=== PATIENT | female | born 1970 | race Caucasian/White ===

== ENCOUNTER 2022-11-24 06:01 | Day surgery (SDC) | payer OTHER, SELFPAY ==
[2022-11-05 12:06] VITALS: BMI 19.5
--- NOTE | 2022-11-21 14:00 | PM.HPGS ---
History of Present Illness History of Present Illness Consent: Risks, benefits, and alternatives have been discussed and questions answered. Patient agrees to proceed with procedure. Chief complaint: History of Colon Polyps Narrative: Cyndi Franks is a 52 year old female with history of colon polyps referred for colon cancer screening. Review of Systems Review of Systems: All systems reviewed & are unremarkable except as noted in HPI and below PMFSH Past Medical History Medical History History of vaginal delivery x 1 Hypothyroidism Rupture of plantar fascia of left foot Surgical History Surgical History History of ankle surgery tarsal tunnel, Dr. Higinio Natarajan History of ear surgery History of right oophorectomy Hx of LASIK [place] teeth removed Family History Family History Grandparent Diabetes mellitus Hypertension Other Neuropathy Social History Social History Smoking status: Never smoker Alcohol intake: never Substance use: never Substance use type: does not use Lack of Transportation: No Lack of Food: Never True Current Housing: I Have Housing Concerned About Future Housing: No Difficulty Paying Gas/Electric Bills: No Difficulty Paying for Meds: No Currently Unemployed: No Education: Master's Degree or Higher Difficulty w/ Childcare or Family Care: No Living arrangements: with family Spiritual care concerns: No Meds Home Medications and Allergies Home Medications Medication Instructions Recorded Confirmed Type multivitamin 1 cap PO DAILY 11/01/19 11/24/22 History spironolactone 100 mg PO DAILY 11/01/19 11/24/22 History valacyclovir 1 gram tablet 1,000 mg PO Q12H PRN Fever 10/16/20 11/24/22 Rx blisters #90 tabs levothyroxine 125 mcg capsule 125 mcg PO DAILY 12/03/20 11/24/22 History atorvastatin 10 mg tablet 10 mg PO DAILY 04/14/22 11/24/22 History Allergies Allergy/AdvReac Type Severity Reaction Status Date / Time Sulfa (Sulfonamide Allergy Unknown Unknown Verified 11/24/22 07:15 Antibiotics) Exam Const: General: alert Orientation/consciousness: patient oriented x3 Resp: Auscultation: clear to auscultation bilaterally Cardio: Rhythm: regular rhythm GI: GI Palp: Yes Soft to palpation and No Tenderness to palpation present (GI) Neuro: General: patient oriented x3 Assessment and Plan Assessment and plan (1) Colon cancer screening: Code(s): Z12.11 - Encounter for screening for malignant neoplasm of colon Status: Acute Assessment and Plan: Colonoscopy with possible biopsy or polypectomy or cautery or injection of substances.
[2022-11-24 07:33] VITALS: BP 104/47; PULSE 109; RESP 16; TEMP 37.2; O2SAT 100
[2022-11-24] MEDS: LACTATED RINGERS 1,000 ML 150 ML IV CONT (07:34)
--- NOTE | 2022-11-24 07:53 | P.PNAN_ITS ---
Anes - Initial Pre Proc Eval Procedure: Operation Date: 11/24/22 08:30 Proposed Procedures p Colonoscopy - Norm Fofana MD Date/Time: 11/24/22 07:53 Surgeon: Norm Fofana MD Pre Op Diagnosis: History of Colon Polyps Patient Data Age: 52 Gender: F Height: 1.68 m Weight: 51.9 kg Last Vital Signs Temp 37.2 C 11/24/22 07:33 Pulse 109 H 11/24/22 07:33 Resp 16 11/24/22 07:33 BP 104/47 L 11/24/22 07:33 Pulse Ox 100 11/24/22 07:33 O2 Del Method Room Air 11/24/22 07:33 Allergies Allergy/AdvReac Type Severity Reaction Status Date / Time Sulfa (Sulfonamide Allergy Unknown Unknown Verified 11/24/22 07:15 Antibiotics) Home Medications Medication Instructions Recorded Confirmed Type multivitamin 1 cap PO DAILY 11/01/19 11/24/22 History spironolactone 100 mg PO DAILY 11/01/19 11/24/22 History valacyclovir 1 gram tablet 1,000 mg PO Q12H PRN Fever 10/16/20 11/24/22 Rx blisters #90 tabs levothyroxine 125 mcg capsule 125 mcg PO DAILY 12/03/20 11/24/22 History atorvastatin 10 mg tablet 10 mg PO DAILY 04/14/22 11/24/22 History Patient hx anesthesia problems: none Family hx anesthesia problems: none Results Review: All pre-operative results and documents have been reviewed as part of the pre- operative evaluation. [facility] Past Medical History Medical History History of vaginal delivery x 1 Hypothyroidism Rupture of plantar fascia of left foot Surgical History Surgical History History of ankle surgery tarsal tunnel, Dr. Higinio Natarajan History of ear surgery History of right oophorectomy Hx of LASIK [place] teeth removed Family History Family History Grandparent Diabetes mellitus Hypertension Other Neuropathy Social History Social History Smoking status: Never smoker Alcohol intake: never Substance use: never Substance use type: does not use Lack of Transportation: No Lack of Food: Never True Current Housing: I Have Housing Concerned About Future Housing: No Difficulty Paying Gas/Electric Bills: No Difficulty Paying for Meds: No Currently Unemployed: No Education: Master's Degree or Higher Difficulty w/ Childcare or Family Care: No Living arrangements: with family Spiritual care concerns: No Anes - Eval Final PreProcedure Day of Procedure 11/24/22 07:53 Patient weight: normal Heart: regular rate and rhythm Lungs: clear to auscultation Airway: Mallampati scale class II Neurological: alert and oriented Last oral intake: >/= 8 hours ASA classification: II Emergent: no Anesthetic plan: proceed Anesthesia type and monitoring: general GIVS and standard monitoring Results Review: All pre-operative results and documents have been reviewed as part of the pre- operative evaluation. Informed Consent: The patient's anesthetic plan and its attendant risks and benefits were discussed with the patient/family/POA. Questions were solicited and answers provided to the satisfaction of
[2022-11-24 08:48] VITALS: BP 93/45; PULSE 84; RESP 18; O2SAT 100
[2022-11-24 08:58] VITALS: BP 94/59; PULSE 67; RESP 18; O2SAT 100
--- NOTE | 2022-11-24 08:58 | WPDANESPN ---
Anes - Prog Note Post-Op Date/Time: 11/24/22 08:58 Cardiovascular status: normal Respiratory status: normal Airway patency: baseline Mental status: baseline Post-Op hydration status: normal Vital Signs: Last Vital Signs Temp 37.2 C 11/24/22 07:33 Pulse 84 11/24/22 08:48 Resp 18 11/24/22 08:48 BP 93/45 L 11/24/22 08:48 Pulse Ox 100 11/24/22 08:48 O2 Del Method Room Air 11/24/22 08:48 Pain Score (VAS): 0 I/O: Intake & Output 11/23/22 11/24/22 11/24/22 23:59 07:59 15:59 Intake Total 600 Balance 600 Patient Feedback: Patient satisfied with anesthetic care.
[2022-11-24 09:08] VITALS: BP 91/57; PULSE 72; RESP 20; O2SAT 100
== END 2022-11-24 09:17 | disposition home or self-care (01) ==
PROVIDERS: PCP Internal Medicine; Visit Provider Internal Medicine Gastroenterology
PROC: 0DJD8ZZ Inspection of Lower Intestinal Tract, Via Natural or Artificial Opening Endoscopic (ICD-10-PCS; CPT 45378; principal; 2022-11-24 08:30)
DX: Z12.11 Encounter for screening for malignant neoplasm of colon (principal); Z86.010 Personal history of colon polyps
CPT/HCPCS: 45378

== ENCOUNTER 2024-03-23 12:26 | Outpatient (CLI) | payer OTHER, SELFPAY ==
--- NOTE | ~2024-03-23 | MMUS_ITS ---
EXAMINATION: MM diagnostic syeda RT w annmarie, US breast RT complete HISTORY: Right breast masses. TECHNIQUE: Additional 3-D tomosynthesis images of the right breast were performed and synthetic 2-D i mages were generated. CAD analysis was submitted and interpreted. High resolution complete right [address]il[address] st ultrasound was performed. COMPARISON: Comparison to multiple prior studies sequentially, with oldest reviewed study dated 11/03. BREAST PARENCHYMAL COMPOSITION: Dense: The breasts are heterogeneously dense, which may obscure small masses FINDINGS: MAMMOGRAPHIC FINDINGS: There are masses in the upper outer quadrant of the right breast some of which are partially obscured by fibroglandular tissue. There are no suspicious calcifications or architectural distortion. ULTRASOUND: Complete US of all 4 quadrants of the right breast/s and retroareolar region was reviewed. At 12:00, 2 cm from the nipple there is a 3 mm cyst. At 9:00, 3 cm from the nipple there is a 7 mm cyst. At 10: 00, 7 cm from the nipple there is a 5 mm minimally complicated cysts. At 10:00, 7 cm from the nipple there is a 5 mm intramammary lymph node. No suspicious masses to suggest malignancy. IMPRESSION: 1. No evidence for malignancy in the right breast. Benign findings. 2. Routine yearly screening mammogram and regular clinical breast examination are recommended. BI-RADS Category 2: Benign finding(s). Reviewed, dictated and finalized at location B. [place] [employer] IMPRESSION: 1. No evidence for malignancy in the right breast. Benign findings. 2. Routine yearly screening mammogram and regular clinical breast examination a re recommended. BI-RADS Category 2: Benign finding(s).
--- OUTSIDE RECORDS SUMMARY | 2024-03-23 12:32 | XMS_ITS | Clinical Summary ---
Author Organization [facility] [place] [address] Address [address] [place] [id number] Care Team Providers Care Solidworks Drafter Name Role Phone Maria Del Carmen Rothman Primary Care Pr ovider Allergies Active Allergy Reactions Criticality Noted Date Comments Sulfa (Sulfonamide Antibiotics) Rash Medium 11/11 Medications atorvastatin (LIPITOR) 10 mg tablet 3 Active cholecalciferol (VITAMIN D-3) 78145 unit tablet Active ciprofloxacin-f luocinolone (Otovel) otic solution Administer into affected ear(s) 7 Active Synthroid 125 mcg tablet 3 Active spironolactone (ALDACTONE) 100 mg tablet 4 Active multivitamin tablet Active Active Problems No known active problems Surgical History Surgery Date Site/Laterality Comments AR UNLISTED PROCEDURE ABDOME N PERITONEUM & OMENTUM Hernia Repair - (Added by TW Conv) Medical History Medical History Date Comments Endometriosis Endometriosis - (Added by TW Conv) Social History Tobacco Use Types Packs/Day Years Used Date Smoking Tobacco: Never Comments Unknown Sex and Gender Information Value Date Recorded Sex Assigned at Not on file Legal Sex Female 12:07 PM [employer] Gender Identity Not on file Sexual Orientation Not on file Obstetrics History Last Filed Vital Signs Vital Sign Reading Time Taken Comments Blood Pressure 121/70 07/14/2023 9:49 AM CDT Pulse 73 07/14/2023 9:49 AM CDT Temperature 36.8 C (98.3 F) 07/14/2023 9:49 AM CDT Respiratory Rate 16 07/14/2023 9:49 AM CDT Oxygen Saturation 99% 07/14/2023 9:49 AM CDT Inhaled Oxygen Concentration - - Weight 57.2 kg (126 lb) 07/14/2023 9:49 AM CDT Height 167.6 cm (5' 6 ) 07/14/2023 9:49 AM CDT Body Mass Index 20.34 07/14/2023 9:49 AM CDT Plan of Treatment Health Maintenance Due Date Last Done Comments Breast Cancer Screening-Mammogram 1969 Cervical Cancer Screening 1969 Colon Cancer Screening-Colonoscopy 1969 Depression Screening 1969 Hepatitis C Screening 1969 DTaP/Tdap/Td Vaccine (1 - Tdap) 1980 Hepatitis B Screening 09/08/1987 Regular Well Visit/Exam 18-64 09/08/1987 Zoster Vaccine (1 of 2) 09/08/2019 Covid-19 Vaccine ( season) 2023 12/04/2022, 12/19/2021, 09/04/2021, Additional history exists Influenza Vaccine (#1) 2023 , 11/29/2021, 11/19/2020, Additional history exists Pneumococcal vaccine <65 Aged Out No longer eligible based on patient's age to complete [place] [id number] [facility] PL[facility] Care Teams Solidworks Drafter Relationship Specialty Start Date End Date Maria Del Carmen Rothman PA [address] [place] [address] PCP - General Physician Fingerprint Expert 07/14/23
--- OUTSIDE RECORDS SUMMARY | 2024-03-23 12:32 | XMS_ITS | Data Portability ---
Author Organization [facility] [address] [place] [address] Care Team Providers Care Delinquent Notice Machine Operator Name Role Phone SUSY CARTER Primary Care Provider Unavailab le Assessment Encounter Date Assessment Date Assessment LastModified by Organization Details LastModified Time 04/20/2023 04/20/2023 Mammogram UTD february 2023, colonoscopy UTD [address] Fofana, all clear. pap smear utd with dr. gr, next due may 2023 eye exam last week dental visit UTD [email or web address] Not available 04/20/2023 08:56:06 Plan of Treatment Reminders Order Date Submit Date Provider Last Modified By Organization Details Last Modified Time Details Appointments ANNUAL 30 2024 07:30A M SIM Pepe Not available Not available Not available Lab vitamin D, 25-hydrox y, total, serum 2023 [facility] (Lab), [address] [place], [address], 04/27/2023 17:51:30 CBC w/ auto diff 2023 024 [facility] (Lab), [address] [place], [address], 04/27/2023 17:51:29 CMP, serum or plasma 2023 024 [facility] (Lab), [address] [place], [address], 04/27/2023 17:51:29 vitamin B12 + folate, serum or blood 2023 024 [facility] (Lab), [address] [place], [address], 04/27/2023 17:51:30 glycohemo globin, total, blood 2023 024 [facility] (Lab), [address] [place], [address], 04/27/2023 17:51:29 TSH, serum or plasma 2023 024 [facility] (Lab), [address] [place], [address], 04/27/2023 17:51:29 T4, free, serum 2023 024 [facility] (Lab), [address] [place], [address], 04/27/2023 17:51:29 T3, free, serum or plasma 2023 024 [facility] (Lab), [address] [place], [address], 04/27/2023 17:51:29 lipid panel, serum 2023 024 [facility] (Lab), [address] [place], [address], 04/27/2023 17:51:28 Referral None recorded. Procedures None recorded. Surgeries None recorded. Imaging None recorded. Medication Orders triamcino lone acetonide 0.5 % topical cream 2023 [facility]arm[facility] #[id number], [address] , [place], [address], 01/13/2024 09:45:16 Patient TargetsNo targets recorded. Patient InstructionsNo instructions recorded. Reason for Referral None Reported. Results Created Date Observation Date Name Description Value Unit Range Abnormal Flag Note LastModifiedBy Organization Detail LastModifiedTime 03/05/1903/05/2024 MAMMO , scree gloria, digit al, bilat eral No observ ation record ed. [address], [place], [address], 03/11/2024 10:49:54 03/18/1903/05/2024 MAMMO , flaviae gloria, digit al, bilat eral No observ ation record ed. [address], [place], [address], 03/22/2024 09:24:18 Result Notes None recorded. Problems Name Problem SNOMED Code Status Onset Date Resolution Date Notes Provider Name and Address Organization Details Recorded Time [facility] 80181567 Active 2023 [place] 4 08:32:22 Hypothyroidism 40304793 Active 2023 [place]odi [place] [facility] 09:17:05 Problem Notes None recorded. Procedures Surgical History Date Name Laterality Status Provider Name and Address Organization Details Recorded Time 11/25/19 colonoscopy completed Jodi [place] - [facility] 04/20/2023 12:41:41 laser assisted in situ keratomileusis completed [place]odi [place] 04/20/2023 12:36:12 operation on female genital organs completed [place] [facility] 04/20/2023 12:37:07 tarsal tunnel release completed [place] [facility] 04/20/2023 12:38:53 Other completed [place] [facility] 04/20/2023 12:39:15 Imaging Results Imaging Date Name Status [facility]Modified by [facility] Details LastModified Time 03/05/2024 MAMMO, screening, digital, bilateral completed [address], [place], [address], 03/11/2024 10:49:54 03/05/2024 MAMMO, screening, digital, bilateral completed [address], [place], [address], 03/22/2024 09:24:18 Procedure Notes None recorded. Medical Equipment None Reported. Allergies Allergen ID Allergen Name Allergen Category Reaction Reaction Severity Criticality Documentation Date Start Date Code Code System Note Provider Name and Address Organization Details Recorded Time 455460 Substance with sulfonami de structure and antibacte rial mechanism of action (substanc e) medicatio n rash Not available Not available 04/20/2023 57417 8003 SNOMED Not Available Not Available Not Available Medications Name Sig Start Date Stop Date Status Note LastModified by Organization Details LastModified Time amoxicillin 500 mg capsule TAKE 2 CAPSULES BY MOUTH ONCE DAILY X10 DAYS 04/19 completed Not Available Not Available Not Available triamcinolo ne acetonide 0.5 % topical cream APPLY A THIN LAYER TO THE AFFECTED AREA(S) BY TOPICAL ROUTE 2 TIMES PER DAY PRN 2023 active Not Available Not Available Not Avai lable atorvastati n 10 mg tablet Take 1 tablet every day by oral route. active Not Available Not Available No t Available valacyclovi r 1 gram tablet active Not Available Not Available Not Available Synthroid 125 mcg tablet TAKE 1 BY MOUTH EVERY DAY active Not Available Not Available No t Available spironolact one 100 mg tablet Take 1 tablet every day by oral route for 90 days. active Not Available Not Available No t Available amoxicillin 875 mg tablet TAKE 1 TABLET BY MOUTH TWICE A DAY FOR 10 DAYS 01/12 completed Not Available Not Available Not Available nystatin 100,000 unit/gram topical cream APPLY TO THE AFFECTED AREA(S) of feet BY TOPICAL ROUTE 2 TIMES PER DAY 2023 active Not Available Not Available Not Avai lable amoxicillin 875 mg-potassiu m clavulanate 125 mg tablet TAKE 1 TABLET BY MOUTH EVERY DAY IN THE MORNING AND AT BEDTIME FOR 7 DAYS 04/19 completed Not Available Not Available Not Available estradiol 10 mcg vaginal tablet Insert 1 tablet every day by vaginal route for 84 days. active Not Available Not Available No t Available Xiidra 5 % eye drops in a dropperette twice daily active Not Available Not Available No t Available Flowflex COVID-19 Antigen Home Test kit 04/19 completed Not Available Not Available Not Available Vitals Date Recorded Body weight Respiratory rate Heart rate Body mass index (BMI) Body height Systolic blood pressure Diastolic blood pressure Provider Name and Address Organization Details Last Updated DateTime 4 93283.0 5 g 16 /min 83 /min 19.9 kg/m2 168.91 cm 100 mm[Hg] 67 mm[Hg] Jodi Lynch [facility] 4 08:35:26 Date Recorded Systolic blood pressure Diastolic blood pressure Systolic blood pressure Diastolic blood pressure Provider Name and Address Organization Details Last Updated DateTime 04/20/2023 120 mm[Hg] 78 mm[Hg] 118 mm[Hg] 80 mm[Hg] SIM Pepe Attn: Accounting ,[address] [facility], [place], [address] , [facility] 4 08:57:03 Date Recorded Body height Body mass index (BMI) Body weight Respiratory rate Oxygen saturation Oxygen saturation in Arterial blood by Pulse oximetry Heart rate Systolic blood pressure Diastolic blood pressure Provider Name and Address Organization Details Last Updated DateTime 4 168.91 cm 19.1 kg/m2 66582.0 8 g 18 /min 99 % 99 % 73 /min 116 mm[Hg] 82 mm[Hg] Robert Mcgraw MA [facility] 4 09:31:45 Social History Question Answer Notes LastModified by Organizat ion Details LastModified Time Tobacco Smoking Status Never Smoker Jodi Lynch [facility], [facility] 04/20/2023 08:36:55 Do You Have An Advance Directive? Yes [email or web address] Information not available 04/20/2023 What Is Your Level Of Alcohol Consumption? Occasional [email or web address] Information not available 04/20/2023 Are You Blind Or Do You Have Difficulty Seeing? Yes Glasses At Night [email or web address] Information not available 04/20/2023 What Is Your Level Of Caffeine Consumption? Moderate [email or web address] Information not available 04/20/2023 In The 14 Days Before Symptom Onset, Have You Had Close Contact With A Laboratory-confir med COVID-19 While That Case Was Ill? No [email or web address] Information not available 04/20/2023 In The 14 Days Before Symptom Onset, Have You Had Close Contact With A Person Who Is Under Investigation For COVID-19 While That Person Was Ill? No [email or web address] Information not available 04/20/2023 Have You Been To An Area Known To Be High Risk For COVID-19? No [email or web address] Information not available 04/20/2023 Are You Currently Employed? Yes Information not available 01/13/2024 Are You Deaf Or Do You Have Serious Difficulty Hearing? No Information not available 04/20/2023 What Type Of Diet Are You Following? 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 No [email or web address] Information not available 04/20/2023 What Was The Date Of Your Most Recent Tobacco Screening? 01/13/2024 Information not available 01/13/2024 What Is Your Relationship Status? [email or web address] Information not available 04/20/2023 Do You Use Your Seat Belt Or Car Seat Routinely? Yes [email or web address] Information not available 04/20/2023 Do You Have Smoke And Carbon Monoxide Detectors In Your Home? Yes Information not available 04/20/2023 Do You Use Any Illicit Or Recreational Drugs? No Information not available 04/20/2023 Do You Use Sunscreen Routinely? Yes Information not available 04/20/2023 Has Tobacco Cessation Counseling Been Provided? No Information not available 01/13/2024 Do You Or Have You Ever Used Any Other Forms Of Tobacco Or Nicotine? No [email or web address] Information not available 04/20/2023 Sex: Unknown Functional Status Question Answer Note LastModified by Organization D etails LastModified Time Are you able to care for yourself? Yes [email or web address] Information n ot available 04/20/2023 What is your exercise level? Heavy [email or web address] Information not available 04/20/2023 Mental Status None recorded. Family History Relationship Description Onset Age of this Age Resolved Age Notes LastModified by Organization Details LastModified Time Mother Diabetes mellitus [email or web address] Not available 04/19 08:36:37 Mother Depressive disorder [email or web address] Not available 04/19 12:41:02 Mother Hyperlipidem ia [email or web address] Not available 04/19 12:41:09 Mother History of thyroid disorder [email or web address] Not available 04/19 12:41:18 Medical History Condition Response Acid Reflux (GERD) Y Thyroid Problems Y Kidney or Bladder Problems Y High Cholesterol Y Gynecological History Statement/Question Response Menses Monthly N Obstetrics History GPAL:G 0 P 0 0 0 0 Immunizations Vaccine Type Date Status Note Provider Nam e and Address Organization Details Recorded Time Influenza, split virus, quadrivalent, preservative 9 completed EDGARD Brown, [place] - [facility] 01/13/2024 09:29:41 Influenza, MDCK, quadrivalent, PF 8 completed [place] [facility] 01/13/2024 09:29:41 Influenza, MDCK, quadrivalent, PF 3 completed [place] [facility] 01/13/2024 09:29:41 COVID-19, mRNA, LNP-S, PF, 100 mcg/0.5mL dose or 50 mcg/0.25mL dose 1 completed [place] [facility] 01/13/2024 09:29:41 COVID-19, mRNA, LNP-S, PF, 100 mcg/0.5mL dose or 50 mcg/0.25mL dose 1 [place] [facility] 01/13/2024 09:29:41 COVID-19, mRNA, LNP-S, PF, 100 mcg/0.5mL dose or 50 mcg/0.25mL dose 1 [place]ARD [place] [facility] 01/13/2024 09:29:41 COVID-19, mRNA, LNP-S, PF, 30 mcg/0.3 mL dose, edgar-sucrose 2 completed ED[place]ARD [place] [facility] 01/13/2024 09:29:41 COVID-19, mRNA, LNP-S, bivalent, PF, 30 mcg/0.3 mL dose 2 completed EDGARD Brown, [place] - [facility] 01/13/2024 09:29:41 COVID-19, mRNA, LNP-S, PF, 50 mcg/0.5 mL 3 completed [place] [facility] 01/13/2024 09:29:41 Influenza, split virus, trivalent, preservative 1 completed [place] [facility] 01/13/2024 09:29:41 Influenza, split virus, trivalent, preservative 4 completed EDGARD Brown, [place] - [facility] 01/13/2024 09:29:41 Influenza, split virus, trivalent, PF 6 completed EDGARD Brown, [place] - [facility] 01/13/2024 09:29:41 Influenza, split virus, quadrivalent, PF 2 completed ED[place]ARD [place] [facility] 01/13/2024 09:29:41 Past Encounters Encounter ID Performer Location Encounter Start Date Encounter Closed Date Diagnosis/Indication Diagnosis SNOMED-CT Code Diagnosis ICD10 Code Diagnosis Note [id number] SIM Pepe [facility] [address] [place] [address] 04/20/2023 08:22:10 04/20/2023 09:04:43 Adult health examination 641433028 Z00.01 new pt well exam completed. Hyperlipidemia 16033967 E78.5 on atorvastat in 10mg daily. due for fasting labs this summer. Hypothyroidism 26969889 E03.9 on thyroid supplement synthroid 125mcg daily. due for TFT panel this summer. Long-term drug therapy 911759482 Z79.899 all fasting routinely labs ordered for summer evaluation . Diabetes m ellitus screening 770985872 Z13.1 Endocrine/ metabolic screening 775785931 Z13.318 [id number] SIM Pepe [facility] [place] [address] [place] [address] 01/13/2024 09:20:58 01/13/2024 10:18:57 Contact dermatitis 56912672 L25.9 located on right dorsal foot and slight left dorsal foot. Start triamcinol one 0.5% cream twice daily for 7-10 days. There is absolutely no known trigger after interviewi ng trying to find a potential cause. Health Concerns Section Related Observation LastModified by Organization Detai ls LastModified Time None Recorded Concern Status LastModified by Organization Details LastModified Time None Recorded Advance Directives Directive Y: Payers Encounter Date Sequence Insurance Name Policy Number Policy Toribio Covered Member ID Toribio Member ID Guarantor Name 04/20/2023 1 [facility] [id number] Cyndi Franks [id number] Cyndi Franks 01/13/2024 1 [facility] [id number] Cyndi Franks [id number] Cyndi Franks Notes Date Note Type Note Provider Name and Address Organization Details Recorded Time 4 text/html HyperlipidemiaReported bypatient.Duration:chronic Control:usually well controlled Compliance:compliant; compliant with diet; exercises Complications:no coronary artery disease; no peripheral artery disease; no cardiovascular diseaseNotes:stable on low dose statin therapy.ThyroidReported bypatient.Quality:not changing Duration:constant Onset/Timing:still present Context:history of hypothyroidism Modifying Factors:medication Exercisegets exercise Associated Symptoms:no cold intolerance; no heat intolerance; no weight loss; no weight gain; no double vision; no dry eyes; no hoarseness; no difficulty swallowing; no neck masses; no deepening of the voice; no fast heart rate; no increased blood pressure; no palpitations; no chest pain; no chest tightess or pressure; no constipation; no diarrhea; no vomiting; no decreased appetite; no loose stools; no irregular menstrual periods; no excessive sweating; no joint pain; no numbness; no tingling of the hands or feet; no dry skin; no tremor; no nervousness; no anxiety; no depression; no fatigue; no sleep difficulties; no skin changes; no hair changesNotes:stable on thyroid supplement. SIM Pepe Attn: Accounting,[address] [place], [address], [place] [facility] 04/20/2023 09:13:09 4 text/html Skin LesionReported bypatient.Location:foot (Dorsal foot bilaterally right greater than left with a red and itchy rash times 5 days) Quality:itchy Severity:mild Duration:5 days Timing:abrupt Context:no known trigger Alleviating Factors:none Aggravating Factors:none Associated Symptoms:no fever; no cold symptoms; no nausea; no vomiting; no skin flakes; no scabbing; no bruising; no lesions multiplying; no lesions spreading; no chills; no night sweats; no lymphadenopathy Prior Treatments:OTC topical treatment SIM Pepe Attn: Accounting,[address] [place] [address], [id number], [place] - [facility] 01/13/2024 10:00:20 OBGyn Episode No OBEpisode recorded.
--- OUTSIDE RECORDS SUMMARY | 2024-03-23 12:33 | XMS_ITS | Referral Summary ---
Author Organization [facility] [address] Address [address] [place] [address] Care Team Providers Care Bump Grader Operator Name Role Phone Maria Del Carmen Rothman Primary Care Pr ovider Allergies Active Allergy Reactions Criticality Noted Date Comments Sulfa (Sulfonamide Antibiotics) Rash Medium 11/11 Medications atorvastatin (LIPITOR) 10 mg tablet 3 Active cholecalciferol (VITAMIN D-3) 45588 unit tablet Active ciprofloxacin-f luocinolone (Otovel) otic solution Administer into affected ear(s) 7 Active Synthroid 125 mcg tablet 3 Active spironolactone (ALDACTONE) 100 mg tablet 4 Active multivitamin tablet Active Active Problems No known active problems Social History Tobacco Use Types Packs/Day Years Used Date Smoking Tobacco: Never Comments Unknown Sex and Gender Information Value Date Recorded Sex Assigned at Not on file Legal 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
--- OUTSIDE RECORDS SUMMARY | 2024-03-23 12:33 | XMS_ITS | Data Portability ---
Author Organization [facility] [employer] Main Office Address [address] [place] [address] Assessment Encounter Date Assessment Date Assessment LastModified by Organization Details LastModified Time 08/13/2022 08/13/2022 Blood work C scope Gets mammograms through device sales consultant Healthy lifestyle choices discussed seatbelts sunscreen regular exercise healthy diet follow-up 1 year [email or web address] Not available 08/13/2022 10:30:42 Plan of Treatment Reminders Order Date Submit Date Provider Last Modified By Organization Details Last Modified Time Details Appointments None recorded. Lab T4, free, serum 023 023 [facility] (Lab), [address] [place], [address], 3 12:58:20 TSH, serum or plasma 023 023 [facility] (Lab), [address] [place], [address], 3 13:02:15 T3, free, serum or plasma 023 023 [facility] (Lab), [address] [place], [address], 3 12:58:25 lipid panel, serum 023 023 [facility] (Lab), [address] [place], [address], 3 12:46:18 CMP, serum or plasma 023 023 [facility] (Lab), [address] [place], [address], 3 12:46:23 CBC w/ auto diff 023 023 [facility] (Lab), [address] [place], [address], 3 12:23:22 vitamin D, 25-hydrox y, total, serum 023 023 cyl [facility] (Lab), [address] [place], [address], 4 10:47:07 Referral None recorded. Procedures None recorded. Surgeries None recorded. Imaging None recorded. Medication Orders None recorded. Patient TargetsNo targets recorded. Patient InstructionsNo instructions recorded. Reason for Referral None Reported. Results Created Date Observation Date Name Description Value Unit Range Abnormal Flag Note LastModifiedBy Organization Detail LastModifiedTime 08/16/19 21 08/15/2020 T3 FREE free T3 3.9 pg/mL 2.77-5 .27 Not Available [facility] (Lab) [address] [place], [address], 08/15/2020 20:27:22 08/16/19 21 08/15/2020 CBC/C OMPLE TE BLD COUNT W/DIF F hemoglobin 14.0 g/dL 12.0-1 5.6 Not Available [facility] (Lab) [address] [place], [address], 08/15/2020 11:38:42 08/16/19 21 08/15/2020 CBC/C OMPLE TE BLD COUNT W/DIF F white blood cells 4.2 x10'3 /uL 4.2-10 .8 Not Available [facility] (Lab) [address] [place], [address], 08/15/2020 11:38:42 08/16/19 21 08/15/2020 CBC/C OMPLE TE BLD COUNT W/DIF F red blood cells 4.66 x10'6 /uL 3.80-5 .20 Not Available [facility] (Lab) [address] [place], [address], 08/15/2020 11:38:42 08/16/19 21 08/15/2020 CBC/C OMPLE TE BLD COUNT W/DIF F hematocrit 42.0 % 35.7-4 5.7 Not Available [facility] (Lab) [address] [place], [address], 08/15/2020 11:38:42 08/16/19 21 08/15/2020 CBC/C OMPLE TE BLD COUNT W/DIF F mean red cell volume 90.1 fL 82.0-9 9.0 Not Available [facility] (Lab) [address] [place], [address], 08/15/2020 11:38:42 08/16/19 21 08/15/2020 CBC/C OMPLE TE BLD COUNT W/DIF F mean red cell hemoglobin 30.0 pg 27.0-3 3.0 Not Available [facility] (Lab) [address] [place], [address], 08/15/2020 11:38:42 08/16/19 21 08/15/2020 CBC/C OMPLE TE BLD COUNT W/DIF F mean RBC HGB concentratio n 33.3 g/dL 31.0-3 6.0 Not Available [facility] (Lab) [address] [place], [address], 08/15/2020 11:38:42 08/16/19 21 08/15/2020 CBC/C OMPLE TE BLD COUNT W/DIF F red cell distribution width 13.2 % 11.8-1 5.5 Not Available [facility] (Lab) [address] [place], [address], 08/15/2020 11:38:42 08/16/19 21 08/15/2020 CBC/C OMPLE TE BLD COUNT W/DIF F platelets 214 x10'3 /uL 150-40 0 Not Available [facility] (Lab) [address] [place], [address], 08/15/2020 11:38:42 08/16/19 21 08/15/2020 CBC/C OMPLE TE BLD COUNT W/DIF F mean platelet volume 10.0 fL 9.0-12 .4 Not Available [facility] (Lab) [address] [place], [address], 08/15/2020 11:38:42 08/16/19 21 08/15/2020 CBC/C OMPLE TE BLD COUNT W/DIF F neutrophils 38.7 % 39.0-7 2.0 low Not Available [facility] (Lab) [address] [place], [address], 08/15/2020 11:38:42 08/16/19 21 08/15/2020 CBC/C OMPLE TE BLD COUNT W/DIF F lymphocytes 48.2 % 16.0-4 7.0 high Not Available [facility] (Lab) [address] [place], [address], 08/15/2020 11:38:42 08/16/19 21 08/15/2020 CBC/C OMPLE TE BLD COUNT W/DIF F monocytes 9.8 % 5.0-12 .0 Not Available [facility] (Lab) [address] [place], [address], 08/15/2020 11:38:42 08/16/19 21 08/15/2020 CBC/C OMPLE TE BLD COUNT W/DIF F eosinophils 2.1 % 1.0-7. 0 Not Available [facility] (Lab) [address] [place], [address], 08/15/2020 11:38:42 08/16/19 21 08/15/2020 CBC/C OMPLE TE BLD COUNT W/DIF F basophils 1.0 % 0.0-2. 0 Not Available [facility] (Lab) [address] [place], [address], 08/15/2020 11:38:42 08/16/19 21 08/15/2020 CBC/C OMPLE TE BLD COUNT W/DIF F immature granulocytes 0.2 % 0.00-0 .50 Not Available [facility] (Lab) [address] [facility] [place], [address], 08/15/2020 11:38:42 08/16/19 21 08/15/2020 CBC/C OMPLE TE BLD COUNT W/DIF F neutrophils, absolute count 1.62 x10'3 /uL 1.5-8. 0 Not Available [facility] (Lab) [address] [place], [address], 08/15/2020 11:38:42 08/16/19 21 08/15/2020 CBC/C OMPLE TE BLD COUNT W/DIF F lymphocytes, absolute count 2.02 x10'3 /uL 1.07-3 .43 Not Available [facility] (Lab) [address] [place], [address], 08/15/2020 11:38:42 08/16/19 21 08/15/2020 CBC/C OMPLE TE BLD COUNT W/DIF F immature granulocytes ,absolute 0.01 x10'3 /uL 0.00-0 .05 Not Available [facility] (Lab) [address] [place], [address], 08/15/2020 11:38:42 08/16/19 21 08/15/2020 CBC/C OMPLE TE BLD COUNT W/DIF F monocytes, absolute count 0.41 x10'3 /uL 0.29-0 .99 Not Available [facility] (Lab) [address] [facility] [place], [address], 08/15/2020 11:38:42 08/16/19 21 08/15/2020 CBC/C OMPLE TE BLD COUNT W/DIF F eosinophils, absolute count 0.09 x10'3 /uL 0.02-0 .53 Not Available [facility] (Lab) [address] [place], [address], 08/15/2020 11:38:42 08/16/19 21 08/15/2020 CBC/C OMPLE TE BLD COUNT W/DIF F basophils, absolute count 0.04 x10'3 /uL 0.01-0 .08 Not Available [facility] (Lab) [address] [place], [address], 08/15/2020 11:38:42 08/16/19 21 08/15/2020 CBC/C OMPLE TE BLD COUNT W/DIF F nucleated red blood cells 0.0 % -0 Not Available [facility] (Lab) [address] [place], [address], 08/15/2020 11:38:42 08/16/19 21 08/15/2020 CBC/C OMPLE TE BLD COUNT W/DIF F NRBC# 0.00 x10'3 /uL Not Available [facility] (Lab) [address] [place], [address], 08/15/2020 11:38:42 08/16/19 21 08/15/2020 COMPR EHENS TC METAB OLIC PANEL sodium 142 mmol/ L 137-14 5 Not Available [facility] (Lab) [address] [place], [address], 08/15/2020 20:42:54 08/16/19 21 08/15/[address] METAB OLIC PANEL potassium 4.8 mmol/ L 3.5-5. 1 Not Available [facility] (Lab) [address] [facility], [address], 08/15/2020 20:42:54 08/16/19 21 08/15/2020 COMPR EHENS TC METAB OLIC PANEL chloride 105 mmol/ L 98-107 Not Available [facility] (Lab) [address] [place], [address], 08/15/2020 20:42:54 08/16/19 21 08/15/2020 COMPR EHENS TC METAB OLIC PANEL carbon dioxide 28 mmol/ L 22-30 Not Available [facility] (Lab) [address] [place], [address], 08/15/2020 20:42:54 08/16/19 21 08/15/2020 COMPR EHENS TC METAB OLIC PANEL agap 13.8 mmol/ L 14-22 low Not Available [facility] (Lab) [address] [facility] [place], [address], 08/15/2020 20:42:54 08/16/19 21 08/15/2020 COMPR EHENS TC METAB OLIC PANEL glucose 95 mg/dL 70-99 Not Available [facility] (Lab) [address] [place], [address], 08/15/2020 20:42:54 08/16/19 21 08/15/2020 COMPR EHENS TC METAB OLIC PANEL BUN 17 mg/dL 8-19 Not Available [facility] (Lab) [address] [place], [address], 08/15/2020 20:42:54 08/16/19 21 08/15/2020 COMPR EHENS TC METAB OLIC PANEL creatinine 0.82 mg/dL 0.66-1 .25 Not Available [facility] (Lab) [address] [facility] [place], [address], 08/15/2020 20:42:54 08/16/19 21 08/15/2020 COMPR EHENS TC METAB OLIC PANEL GFR >60 Refer ence Range : Edgar ge GFR Healt hy Adult : >60 mL/mi n/1.7 3 m2 Chron ic Kidne y Disea se: 15-60 mL/mi n/1.7 3 m2 Kidne y Failu re: <15/m L/min /1.73 m2 www.[email or web address] nih.g ov MDRD study equat ion hasn' t been valid ated in child mary <18 yrs of age, pregn ant women , the elder ly >85 yrs of age, or in some racia l or ethni c subgr oups, suc as Hispa nics. Outsi de the valid ated moses eters , estim ated GFR is less accur ate requi ring clini simba judgm ent on a case by case basis . Clini simba inter preta tion for other races and ages must be made by the clini taylor . Futhe rmore , any of th e limit ation s with the use of serum creat inine relat ed to nutri [place] l statu s o r medic ation usage hasn' t accou nted for the MDRD Study equat ion. For perso ns < 18 yrs of age, a pedia tric GFR calcu lator can be locat ed on the [facility] websi te: [email or web address] :[email or web address] [email or web address].o rg/pr elleness ional s/kdo qi/gf r_cal culat or Not Available [facility] (Lab) [address] [place], [address], 08/15/2020 20:42:54 08/16/19 21 08/15/2020 COMPR EHENS TC METAB OLIC PANEL alkaline phosphatase 78 U/L 38-126 Not Available [facility] (Lab) [address] [place], [address], 08/15/2020 20:42:54 08/16/19 21 08/15/2020 COMPR EHENS TC METAB OLIC PANEL alanine aminotransfe rase 38 U/L 0-35 high Not Available [facility] (Lab) [address] [place], [address], 08/15/2020 20:42:54 08/16/19 21 08/15/2020 COMPR EHENS TC METAB OLIC PANEL aspartate aminotransfe rase 35 U/L 15-37 Not Available [facility] (Lab) [address] [place], [address], 08/15/2020 20:42:54 08/16/19 21 08/15/2020 COMPR EHENS TC METAB OLIC PANEL bilirubin, total 0.80 mg/dL 0.20-1 .30 Not Available [facility] (Lab) [address] [place], [address], 08/15/2020 20:42:54 08/16/19 21 08/15/2020 COMPR EHENS TC METAB OLIC PANEL calcium 10.2 mg/dL 8.4-10 .2 Not Available [facility] (Lab) [address] [place], [address], 08/15/2020 20:42:54 08/16/19 21 08/15/2020 COMPR EHENS TC METAB OLIC PANEL total protein 7.8 g/dL 6.3-8. 2 Not Available [facility] (Lab) [address] [place], [address], 08/15/2020 20:42:54 08/16/19 21 08/15/2020 COMPR EHENS TC METAB OLIC PANEL albumin 4.9 g/dL 3.4-5. 0 Not Available [facility] (Lab) [address] [place], [address], 08/15/2020 20:42:54 08/16/19 21 08/15/2020 COMPR EHENS TC METAB OLIC PANEL globulin 2.9 g/dL 2.6-4. 2 Not Available [facility] (Lab) [address] [place], [address], 08/15/2020 20:42:54 08/16/19 21 08/15/2020 COMPR EHENS TC METAB OLIC PANEL A/G ratio 1.7 ratio 1.0-2. 0 Not Available [facility] (Lab) [address] [place], [address], 08/15/2020 20:42:54 08/16/19 21 08/15/2020 LIPID PANEL cholesterol 212 mg/dL 140-19 9 high NIH BRI NSUS RECOM MENDA TION FOR ALMA ROSA STERO L: ADULT CHILD LOW RISK: <200 <170 BORDE RLINE : <200- 239 ----- HIGH RISK: >240 >200 Not Available [facility] (Lab) [address] [place] [address], [address], 08/15/2020 20:42:44 08/16/19 21 08/15/2020 LIPID PANEL triglyceride s 65 mg/dL 0-150 NIH BRI NSUS REPOR T RECOM MENDA TION FOR TRIGL YCERI OBDULIO: ADULT CHILD LOW RISK: <150 ----- BODER LINE: 150-1 99 ----- HIGH RISK: >200 ----- Not Available [facility] (Lab) [address] [place] [address], [address], 08/15/2020 20:42:44 08/16/19 21 08/15/2020 LIPID PANEL HDL cholesterol 80 mg/dL 40- Not Available [facility] (Lab) [address] [place] [address], [address], 08/15/2020 20:42:44 08/16/19 21 08/15/2020 LIPID PANEL LDL cholesterol, calculated 119 mg/dL 0-130 NIH BRI NSUS REPOR T RECOM MENDA TIONS FOR LDL: ADULT CHILD LOW RISK <130 <110 (OPTI MAL LDL) <100 ----- BORDE RLINE : 130-1 59 ----- HIGH RISK: >160 >130 A TRIGL YCERI DE RESUL T >400 INVAL IDATE S THE CALCU LATIO N FOR LDL FRACT IONAT ION - THE LDL RESUL T WILL NOT BE REPOR FELICITA. Not Available [facility] (Lab) [address] [place], [address], 08/15/2020 20:42:44 08/16/19 21 08/15/2020 TSH thyroid-stim ulating hormone 0.062 uIU/m L 0.465- 4.680 low Not Available [facility] (Lab) [address] [place], [address], 08/15/2020 20:28:56 08/16/19 21 08/15/2020 T4 FREE free T4 1.64 NG/dL 0.78-2 .19 Not Available [facility] (Lab) [address] [place], [address], 08/15/2020 20:27:15 08/16/19 21 08/15/2020 SEDIM ENTAT ION RATE erythrocyte sedimentatio n rate 16 mm/HR 0-20 Not Available [facility] (Lab) [address] [place], [address], 08/15/2020 12:52:10 08/15/19 22 08/14/2021 COMPR EHENS TC METAB OLIC PANEL carbon dioxide 28 mmol/ L 22-30 Not Available [facility] (Lab) [address] [place], [address], 08/14/2021 12:06:13 08/15/19 22 08/14/2021 COMPR EHENS TC METAB OLIC PANEL sodium 138 mmol/ L 137-14 5 Not Available [facility] (Lab) [address] [place], [address], 08/14/2021 12:06:13 08/15/19 22 08/14/2021 COMPR EHENS TC METAB OLIC PANEL potassium 4.0 mmol/ L 3.5-5. 1 Not Available [facility] (Lab) [address] [place], [address], 08/14/2021 12:06:13 08/15/19 22 08/14/2021 COMPR EHENS TC METAB OLIC PANEL chloride 105 mmol/ L 98-107 Not Available [facility] (Lab) [address] [place], [address], 08/14/2021 12:06:13 08/15/19 22 08/14/2021 COMPR EHENS TC METAB OLIC PANEL anion gap 9.0 mmol/ L 14-22 low Not Available [facility] (Lab) [address] [place], [address], 08/14/2021 12:06:13 08/15/19 22 08/14/2021 COMPR EHENS TC METAB OLIC PANEL glucose 94 mg/dL 70-99 Not Available [facility] (Lab) [address] [place], [address], 08/14/2021 12:06:13 08/15/19 22 08/14/2021 COMPR EHENS TC METAB OLIC PANEL BUN 15 mg/dL 8-19 Not Available [facility] (Lab) [address] [place], [address], 08/14/2021 12:06:13 08/15/19 22 08/14/2021 COMPR EHENS TC METAB OLIC PANEL creatinine 0.77 mg/dL 0.66-1 .25 Not Available [facility] (Lab) [address] [place], [address], 08/14/2021 12:06:13 08/15/19 22 08/14/2021 COMPR EHENS TC METAB OLIC PANEL GFR >60 Refer ence Range : Edgar ge GFR Healt hy Adult : >60 mL/mi n/1.7 3 m2 Chron ic Kidne y Disea se: 15-60 mL/mi n/1.7 3 m2 Kidne y Failu re: <15/m L/min /1.73 m2 www.n [email or web address]. nih.g ov The MDRD study equat ion has not been valid ated in child mary <18 years of age; pregn ant women ; the elder ly >85 years of age; or in some racia l or ethni c subgr oups, such as Hisbethany nics. Outsi de the valid ated moses eters , estim ated GFR is less accur ate, requi ring clini simba judgm ent on a case- by-ca se basis . Clini simba inter preta tion for other races and ages must be made by the clini taylor. The MDRD study equat ion has not been valid ated for the evalu ation of serum creat inine relat ed to nutri [place] l statu s or medic ation usage . For perso ns <18 years of age, a pedia tric GFR calcu lator is avail able on the [facility] websi te: https :[email or web address] rosales.[email or web address] [email or web address].o rg/pr ofess ional s/kdo qi/gf r_cal culat or Not Available [facility] (Lab) [address] [place], [address], 08/14/2021 12:06:13 08/15/19 22 08/14/2021 COMPR EHENS TC METAB OLIC PANEL alkaline phosphatase 77 U/L 38-126 Not Available [facility] (Lab) [address] [place], [address], 08/14/2021 12:06:13 08/15/19 22 08/14/2021 COMPR EHENS TC METAB OLIC PANEL alanine aminotransfe rase 33 U/L 0-35 Not Available [facility] (Lab) [address] [place], [address], 08/14/2021 12:06:13 08/15/19 22 08/14/2021 COMPR EHENS TC METAB OLIC PANEL aspartate aminotransfe rase 33 U/L 15-37 Not Available [facility] (Lab) [address] [place], [address], 08/14/2021 12:06:13 08/15/19 22 08/14/2021 COMPR EHENS TC METAB OLIC PANEL bilirubin, total 0.80 mg/dL 0.20-1 .30 Not Available [facility] (Lab) [address] [place], [address], 08/14/2021 12:06:13 08/15/19 22 08/14/2021 COMPR EHENS TC METAB OLIC PANEL calcium 9.3 mg/dL 8.4-10 .2 Not Available [facility] (Lab) [address] [place], [address], 08/14/2021 12:06:13 08/15/19 22 08/14/2021 COMPR EHENS TC METAB OLIC PANEL total protein 6.8 g/dL 6.3-8. 2 Not Available [facility] (Lab) [address] [place], [address], 08/14/2021 12:06:13 08/15/19 22 08/14/2021 COMPR EHENS TC METAB OLIC PANEL albumin 4.3 g/dL 3.4-5. 0 Not Available [facility] (Lab) [address] [place], [address], 08/14/2021 12:06:13 08/15/19 22 08/14/2021 COMPR EHENS TC METAB OLIC PANEL globulin 2.5 g/dL 2.6-4. 2 low Not Available [facility] (Lab) [address] [place], [address], 08/14/2021 12:06:13 08/15/19 22 08/14/2021 COMPR EHENS TC METAB OLIC PANEL A/G ratio 1.7 ratio 1.0-2. 0 Not Available [facility] (Lab) [address] [place], [address], 08/14/2021 12:06:13 08/15/19 22 08/14/2021 T3 FREE free T3 4.3 pg/mL 2.77-5 .27 Not Available [facility] (Lab) [address] [place], [address], 08/14/2021 12:56:11 08/15/19 22 08/14/2021 TSH thyroid-stim ulating hormone <0.015 uIU/m L 0.465- 4.680 low Not Available [facility] (Lab) [address] [place], [address], 08/14/2021 12:17:03 08/15/19 22 08/14/2021 T4 FREE free T4 1.52 NG/dL 0.78-2 .19 Not Available [facility] (Lab) [address] [place], [address], 08/14/2021 12:11:16 08/15/19 22 08/14/2021 LIPID PANEL LDL cholesterol, calculated 75 mg/dL 0-130 NIH BRI NSUS REPOR T RECOM MENDA TIONS FOR LDL: ADULT CHILD LOW RISK <130 <110 (OPTI MAL LDL) <100 ----- BORDE RLINE : 130-1 59 ----- HIGH RISK: >160 >130 A TRIGL YCERI DE RESUL T >400 INVAL IDATE S THE CALCU LATIO N FOR LDL FRACT IONAT ION - THE LDL RESUL T WILL NOT BE REPOR FELICITA. Not Available [facility] (Lab) [address] [place], [address], 08/14/2021 12:06:15 08/15/19 22 08/14/2021 LIPID PANEL cholesterol 160 mg/dL 140-19 9 NIH BRI NSUS RECOM MENDA TION FOR ALMA ROSA STERO L: ADULT CHILD LOW RISK: <200 <170 BORDE RLINE : <200- 239 ----- HIGH RISK: >240 >200 Not Available [facility] (Lab) [address] [place], [address], 08/14/2021 12:06:15 08/15/19 22 08/14/2021 LIPID PANEL triglyceride s 49 mg/dL 0-150 NIH BRI NSUS REPOR T RECOM MENDA TION FOR TRIGL YCERI OBDULIO: ADULT CHILD LOW RISK: <150 ----- BODER LINE: 150-1 99 ----- HIGH RISK: >200 ----- Not Available [facility] (Lab) [address] [place], [address], 08/14/2021 12:06:15 08/15/19 22 08/14/2021 LIPID PANEL HDL cholesterol 75 mg/dL 40- Not Available [facility] (Lab) [address] [place], [address], 08/14/2021 12:06:15 08/15/19 22 08/14/2021 CBC/C OMPLE TE BLD COUNT W/DIF F mean red cell volume 91.6 fL 82.0-9 9.0 Not Available [facility] (Lab) [address] [place], [address], 08/14/2021 12:04:32 08/15/19 22 08/14/2021 CBC/C OMPLE TE BLD COUNT W/DIF F white blood cells 4.5 x10'3 /uL 4.2-10 .8 Not Available [facility] (Lab) [address] [place], [address], 08/14/2021 12:04:32 08/15/19 22 08/14/2021 CBC/C OMPLE TE BLD COUNT W/DIF F red blood cells 4.15 x10'6 /uL 3.80-5 .20 Not Available [facility] (Lab) [address] [place], [address], 08/14/2021 12:04:32 08/15/19 22 08/14/2021 CBC/C OMPLE TE BLD COUNT W/DIF F hemoglobin 13.0 g/dL 12.0-1 5.6 Not Available [facility] (Lab) [address] [place], [address], 08/14/2021 12:04:32 08/15/19 22 08/14/2021 CBC/C OMPLE TE BLD COUNT W/DIF F hematocrit 38.0 % 35.7-4 5.7 Not Available [facility] (Lab) [address] [facility] [place], [address], 08/14/2021 12:04:32 08/15/19 22 08/14/2021 CBC/C OMPLE TE BLD COUNT W/DIF F mean red cell hemoglobin 31.3 pg 27.0-3 3.0 Not Available [facility] (Lab) [address] [place], [address], 08/14/2021 12:04:32 08/15/19 22 08/14/2021 CBC/C OMPLE TE BLD COUNT W/DIF F mean RBC HGB concentratio n 34.2 g/dL 31.0-3 6.0 Not Available [facility] (Lab) [address] [place], [address], 08/14/2021 12:04:32 08/15/19 22 08/14/2021 CBC/C OMPLE TE BLD COUNT W/DIF F red cell distribution width 13.2 % 11.8-1 5.5 Not Available [facility] (Lab) [address] [place], [address], 08/14/2021 12:04:32 08/15/19 22 08/14/2021 CBC/C OMPLE TE BLD COUNT W/DIF F platelets 209 x10'3 /uL 150-40 0 Not Available [facility] (Lab) [address] [place], [address], 08/14/2021 12:04:32 08/15/19 22 08/14/2021 CBC/C OMPLE TE BLD COUNT W/DIF F mean platelet volume 10.0 fL 9.0-12 .4 Not Available [facility] (Lab) [address] [place], [address], 08/14/2021 12:04:32 08/15/19 22 08/14/2021 CBC/C OMPLE TE BLD COUNT W/DIF F neutrophils 38.4 % 39.0-7 2.0 low Not Available [facility] (Lab) [address] [place], [address], 08/14/2021 12:04:32 08/15/19 22 08/14/2021 CBC/C OMPLE TE BLD COUNT W/DIF F lymphocytes 52.1 % 16.0-4 7.0 high Not Available [facility] (Lab) [address] [place], [address], 08/14/2021 12:04:32 08/15/19 22 08/14/2021 CBC/C OMPLE TE BLD COUNT W/DIF F monocytes 7.5 % 5.0-12 .0 Not Available [facility] (Lab) [address] [place], [address], 08/14/2021 12:04:32 08/15/19 22 08/14/2021 CBC/C OMPLE TE BLD COUNT W/DIF F eosinophils 1.1 % 1.0-7. 0 Not Available [facility] (Lab) [address] [place], [address], 08/14/2021 12:04:32 08/15/19 22 08/14/2021 CBC/C OMPLE TE BLD COUNT W/DIF F basophils 0.7 % 0.0-2. 0 Not Available [facility] (Lab) [address] [place], [address], 08/14/2021 12:04:32 08/15/19 22 08/14/2021 CBC/C OMPLE TE BLD COUNT W/DIF F immature granulocytes 0.2 % 0.00-0 .50 Not Available [facility] ([facility]) [address] [facility], [address], 08/14/2021 12:04:32 08/15/19 22 08/14/2021 CBC/C OMPLE TE BLD COUNT W/DIF F neutrophils, absolute count 1.74 x10'3 /uL 1.5-8. 0 Not Available [facility] (Lab) [address] [place], [address], 08/14/2021 12:04:32 08/15/19 22 08/14/2021 CBC/C OMPLE TE BLD COUNT W/DIF F lymphocytes, absolute count 2.36 x10'3 /uL 1.07-3 .43 Not Available [facility] (Lab) [address] [place], [address], 08/14/2021 12:04:32 08/15/19 22 08/14/2021 CBC/C OMPLE TE BLD COUNT W/DIF F monocytes, absolute count 0.34 x10'3 /uL 0.29-0 .99 Not Available [facility] (Lab) [address] [place], [address], 08/14/2021 12:04:32 08/15/19 22 08/14/2021 CBC/C OMPLE TE BLD COUNT W/DIF F eosinophils, absolute count 0.05 x10'3 /uL 0.02-0 .53 Not Available [facility] (Lab) [address] [place], [address], 08/14/2021 12:04:32 08/15/19 22 08/14/2021 CBC/C OMPLE TE BLD COUNT W/DIF F basophils, absolute count 0.03 x10'3 /uL 0.01-0 .08 Not Available [facility] (Lab) [address] [place], [address], 08/14/2021 12:04:32 08/15/19 22 08/14/2021 CBC/C OMPLE TE BLD COUNT W/DIF F immature granulocytes ,absolute 0.01 x10'3 /uL 0.00-0 .05 Not Available [facility] (Lab) [address] [place], [address], 08/14/2021 12:04:32 08/15/19 22 08/14/2021 CBC/C OMPLE TE BLD COUNT W/DIF F nucleated red blood cells 0.0 % -0 Not Available [facility] (Lab) [address] [facility] [place], [address], 08/14/2021 12:04:32 08/15/19 22 08/14/2021 CBC/C OMPLE TE BLD COUNT W/DIF F NRBC# 0.00 x10'3 /uL Not Available [facility] [facility] (Lab) [address] [place], [address], 08/14/2021 12:04:32 08/14/19 23 08/13/2022 CBC/C OMPLE TE BLD COUNT W/DIF F white blood cells 4.5 x10'3 /uL 4.2-10 .8 Not Available [facility] (Lab) [address] [place], [address], 08/13/2022 12:23:22 08/14/19 23 08/13/2022 CBC/C OMPLE TE BLD COUNT W/DIF F red blood cells 4.66 x10'6 /uL 3.80-5 .20 Not Available [facility] (Lab) [address] [place], [address], 08/13/2022 12:23:22 08/14/19 23 08/13/2022 CBC/C OMPLE TE BLD COUNT W/DIF F hemoglobin 14.0 g/dL 12.0-1 5.6 Not Available [facility] (Lab) [address] [place], [address], 08/13/2022 12:23:22 08/14/19 23 08/13/2022 CBC/C OMPLE TE BLD COUNT W/DIF F hematocrit 42.4 % 35.7-4 5.7 Not Available [facility] (Lab) [address] [place], [address], 08/13/2022 12:23:22 08/14/19 23 08/13/2022 CBC/C OMPLE TE BLD COUNT W/DIF F mean red cell volume 91.0 fL 82.0-9 9.0 Not Available [facility] (Lab) [address] [place], [address], 08/13/2022 12:23:22 08/14/19 23 08/13/2022 CBC/C OMPLE TE BLD COUNT W/DIF F mean red cell hemoglobin 30.0 pg 27.0-3 3.0 Not Available [facility] (Lab) [address] [place], [address], 08/13/2022 12:23:22 08/14/19 23 08/13/2022 CBC/C OMPLE TE BLD COUNT W/DIF F mean RBC HGB concentratio n 33.0 g/dL 31.0-3 6.0 Not Available [facility] (Lab) [address] [place], [address], 08/13/2022 12:23:22 08/14/19 23 08/13/2022 CBC/C OMPLE TE BLD COUNT W/DIF F red cell distribution width 13.3 % 11.8-1 5.5 Not Available [facility] (Lab) [address] [place], [address], 08/13/2022 12:23:22 08/14/19 23 08/13/2022 CBC/C OMPLE TE BLD COUNT W/DIF F platelets 231 x10'3 /uL 150-40 0 Not Available [facility] (Lab) [address] [place], [address], 08/13/2022 12:23:22 08/14/19 23 08/13/2022 CBC/C OMPLE TE BLD COUNT W/DIF F mean platelet volume 10.1 fL 9.0-12 .4 Not Available [facility] (Lab) [address] [place], [address], 08/13/2022 12:23:22 08/14/19 23 08/13/2022 CBC/C OMPLE TE BLD COUNT W/DIF F neutrophils 41.0 % 39.0-7 2.0 Not Available [facility] (Lab) [address] [place], [address], 08/13/2022 12:23:22 08/14/19 23 08/13/2022 CBC/C OMPLE TE BLD COUNT W/DIF F lymphocytes 47.8 % 16.0-4 7.0 high Not Available [facility] (Lab) [address] [place], [address], 08/13/2022 12:23:22 08/14/19 23 08/13/2022 CBC/C OMPLE TE BLD COUNT W/DIF F monocytes 8.5 % 5.0-12 .0 Not Available [facility] (Lab) [address] [place], [address], 08/13/2022 12:23:22 08/14/19 23 08/13/2022 CBC/C OMPLE TE BLD COUNT W/DIF F eosinophils 1.6 % 1.0-7. 0 Not Available [facility] (Lab) [address] [place], [address], 08/13/2022 12:23:22 08/14/19 23 08/13/2022 CBC/C OMPLE TE BLD COUNT W/DIF F basophils 0.9 % 0.0-2. 0 Not Available [facility] (Lab) [address] [place], [address], 08/13/2022 12:23:22 08/14/19 23 08/13/2022 CBC/C OMPLE TE BLD COUNT W/DIF F immature granulocytes 0.2 % 0.00-0 .50 Not Available [facility] (Lab) [address] [facility], [address], 08/13/2022 12:23:22 08/14/19 23 08/13/2022 CBC/C OMPLE TE BLD COUNT W/DIF F neutrophils, absolute count 1.84 x10'3 /uL 1.5-8. 0 Not Available [facility] (Lab) [address] [place], [address], 08/13/2022 12:23:22 08/14/19 23 08/13/2022 CBC/C OMPLE TE BLD COUNT W/DIF F lymphocytes, absolute count 2.14 x10'3 /uL 1.07-3 .43 Not Available [facility] (Lab) [address] [place], [address], 08/13/2022 12:23:22 08/14/1908/13/2022 CBC/C OMPLE TE BLD COUNT W/DIF F monocytes, absolute count 0.38 x10'3 /uL 0.29-0 .99 Not Available [facility] (Lab) [address] [place], [address], 08/13/2022 12:23:22 08/14/19 23 08/13/2022 CBC/C OMPLE TE BLD COUNT W/DIF F eosinophils, absolute count 0.07 x10'3 /uL 0.02-0 .53 Not Available [facility] (Lab) [address] [place], [address], 08/13/2022 12:23:22 08/14/19 23 08/13/2022 CBC/C OMPLE TE BLD COUNT W/DIF F basophils, absolute count 0.04 x10'3 /uL 0.01-0 .08 Not Available [facility] (Lab) [address] [place], [address], 08/13/2022 12:23:22 08/14/19 23 08/13/2022 CBC/C OMPLE TE BLD COUNT W/DIF F immature granulocytes ,absolute 0.01 x10'3 /uL 0.00-0 .05 Not Available [facility] (Lab) [address] [place], [address], 08/13/2022 12:23:22 08/14/19 23 08/13/2022 CBC/C OMPLE TE BLD COUNT W/DIF F nucleated red blood cells 0.0 % -0 Not Available [facility] (Lab) [address] [place], [address], 08/13/2022 12:23:22 08/14/19 23 08/13/2022 CBC/C OMPLE TE BLD COUNT W/DIF F NRBC# 0.00 x10'3 /uL Not Available [facility] (Lab) [address] [place], [address], 08/13/2022 12:23:22 08/14/19 23 08/13/2022 LIPID PANEL cholesterol 195 mg/dL 140-19 9 NIH BRI NSUS RECOM MENDA TION FOR ALMA ROSA STERO L: ADULT CHILD LOW RISK: <200 <170 BORDE RLINE : <200- 239 ----- HIGH RISK: >240 >200 Not Available [facility] (Lab) [address] [place], [address], 08/13/2022 12:46:18 08/14/1908/13/2022 LIPID PANEL triglyceride s 50 mg/dL 0-150 NIH BRI NSUS REPOR T RECOM MENDA TION FOR TRIGL YCERI OBDULIO: ADULT CHILD LOW RISK: <150 ----- BODER LINE: 150-1 99 ----- HIGH RISK: >200 ----- Not Available [facility] (Lab) [address] [facility] [place], [address], 08/13/2022 12:46:18 08/14/1908/13/2022 LIPID PANEL HDL cholesterol 88 mg/dL 40- Not Available [facility] (Lab) [address] [place], [address], 08/13/2022 12:46:18 08/14/19 23 08/13/2022 LIPID PANEL LDL cholesterol, calculated 97 mg/dL 0-130 NIH BRI NSUS REPOR T RECOM MENDA TIONS FOR LDL: ADULT CHILD LOW RISK <130 <110 (OPTI MAL LDL) <100 ----- BORDE RLINE : 130-1 59 ----- HIGH RISK: >160 >130 A TRIGL YCERI DE RESUL T >400 INVAL IDATE S THE CALCU LATIO N FOR LDL FRACT IONAT ION - THE LDL RESUL T WILL NOT BE REPOR FELICITA. Not Available [facility] (Lab) [address] [place], [address], 08/13/2022 12:46:18 08/14/1908/13/2022 COMPR EHENS TC METAB OLIC PANEL sodium 139 mmol/ L 137-14 5 Not Available [facility] (Lab) [address] [place], [address], 08/13/2022 12:46:23 08/14/1908/13/2022 COMPR EHENS TC METAB OLIC PANEL potassium 4.7 mmol/ L 3.5-5. 1 Not Available [facility] (Lab) [address] [place], [address], 08/13/2022 12:46:23 08/14/19 23 08/13/2022 COMPR EHENS TC METAB OLIC PANEL chloride 102 mmol/ L 98-107 Not Available [facility] (Lab) [address] [place], [address], 08/13/2022 12:46:23 08/14/19 23 08/13/2022 COMPR EHENS TC METAB OLIC PANEL carbon dioxide 27 mmol/ L 22-30 Not Available [facility] (Lab) [address] [place], [address], 08/13/2022 12:46:23 08/14/19 23 08/13/2022 COMPR EHENS TC METAB OLIC PANEL anion gap 14.7 mmol/ L 14-22 Not Available [facility] (Lab) [address] [place], [address], 08/13/2022 12:46:23 08/14/19 23 08/13/2022 COMPR EHENS TC METAB OLIC PANEL glucose 90 mg/dL 70-99 Not Available [facility] (Lab) [address] [place], [address], 08/13/2022 12:46:23 08/14/19 23 08/13/2022 COMPR EHENS TC METAB OLIC PANEL BUN 14 mg/dL 8-19 Not Available [facility] (Lab) [address] [place], [address], 08/13/2022 12:46:23 08/14/19 23 08/13/2022 COMPR EHENS TC METAB OLIC PANEL creatinine 0.72 mg/dL 0.66-1 .25 Not Available [facility] (Lab) [address] [place], [address], 08/13/2022 12:46:23 08/14/19 23 08/13/2022 COMPR EHENS TC METAB OLIC PANEL GFR >60 Refer ence Range : Edgar ge GFR Healt hy Adult : >60 mL/mi n/1.7 3 m2 Chron ic Kidne y Disea se: 15-60 mL/mi n/1.7 3 m2 Kidne y Failu re: <15/m L/min /1.73 m2 www.n iddk. nih.g ov The MDRD study equat ion has not been valid ated in child mary <18 years of age; pregn ant women ; the elder ly >85 years of age; or in some racia l or ethni c subgr oups, such as Hispa nics. Outsi de the valid ated moses eters , estim ated GFR is less accur ate, requi ring clini simba judgm ent on a case- by-ca se basis . Clini simba inter preta tion for other races and ages must be made by the clini taylor. The MDRD study equat ion has not been valid ated for the evalu ation of serum creat inine relat ed to nutri quinton l statu s or medic ation usage . For perso ns <18 years of age, a pedia tric GFR calcu lator is avail able on the [facility] websi te: https :[email or web address] w.hermelinda santoroy.o rg/pr ofess ional s/kdo qi/gf r_cal culat or Not Available [facility] (Lab) [address] [place], [address], 08/13/2022 12:46:23 08/14/19 23 08/13/2022 COMPR EHENS TC METAB OLIC PANEL alkaline phosphatase 89 U/L 38-126 Not Available [facility] (Lab) [address] [place], [address], 08/13/2022 12:46:23 08/14/19 23 08/13/2022 COMPR EHENS TC METAB OLIC PANEL alanine aminotransfe rase 30 U/L 0-35 Not Available [facility] (Lab) [address] [place], [address], 08/13/2022 12:46:23 08/14/19 23 08/13/2022 COMPR EHENS TC METAB OLIC PANEL aspartate aminotransfe rase 38 U/L 15-37 high Not Available [facility] (Lab) [address] [place], [address], 08/13/2022 12:46:23 08/14/19 23 08/13/2022 COMPR EHENS TC METAB OLIC PANEL bilirubin, total 0.90 mg/dL 0.20-1 .30 Not Available [facility] (Lab) [address] [facility] [place], [address], 08/13/2022 12:46:23 08/14/19 23 08/13/2022 COMPR EHENS TC METAB OLIC PANEL calcium 9.4 mg/dL 8.4-10 .2 Not Available [facility] (Lab) [address] [place], [address], 08/13/2022 12:46:23 08/14/19 23 08/13/2022 COMPR EHENS TC METAB OLIC PANEL total protein 7.8 g/dL 6.3-8. 2 Not Available [facility] (Lab) [address] [place], [address], 08/13/2022 12:46:23 08/14/19 23 08/13/2022 COMPR EHENS TC METAB OLIC PANEL albumin 4.6 g/dL 3.4-5. 0 Not Available [facility] (Lab) [address] [place], [address], 08/13/2022 12:46:23 08/14/19 23 08/13/2022 COMPR EHENS TC METAB OLIC PANEL globulin 3.2 g/dL 2.6-4. 2 Not Available [facility] (Lab) [address] [place], [address], 08/13/2022 12:46:23 08/14/19 23 08/13/2022 COMPR EHENS TC METAB OLIC PANEL A/G ratio 1.4 ratio 1.0-2. 0 Not Available [facility] (Lab) [address] [place], [address], 08/13/2022 12:46:23 08/14/19 23 08/13/2022 T4 FREE free T4 1.92 NG/dL 0.78-2 .19 Not Available [facility] (Lab) [address] [place], [address], 08/13/2022 12:58:20 08/14/19 23 08/13/2022 T3 FREE free T3 3.7 pg/mL 2.77-5 .27 Not Available [facility] (Lab) [address] [place], [address], 08/13/2022 12:58:24 08/14/19 23 08/13/2022 VITAM IN D 25-HY DROXY vd25oh 106.0 NG/mL 30-100 high Vitam in D Statu s: Defic ient: <20 ng/mL Insuf ficie nt: 20-29 ng/mL Suffi cient : 30-10 0 ng/mL Not Available [facility] (Lab) [address] [place], [address], 08/13/2022 13:00:47 08/14/19 23 08/13/2022 TSH thyroid-stim ulating hormone <0.015 uIU/m L 0.465- 4.680 low Not Available [facility] (Lab) [address] [place], [address], 08/13/2022 13:02:15 08/16/19 21 08/15/2020 XR, pelvi s [facility] [address] [address] Patien t Name: CYNDI HESTER Access ion #: [id number] Sex: F : 1970 9 Locati on: [facility]OP Attend ing Physic amber: GE CHAPIN Orderi ng Physic amber: GE CHAPIN Exam Date: 08/16/19 10:03 AM Exam Name: XR PELVIS 1V Admitt ing Diagno sis(es ): RADIOL OGY REPORT - FINAL EXAM: XR T SPINE 3V; XR L SPINE 4V+; XR PELVIS 1V HISTOR Y: PAIN IN THORAC IC SPINE; LOW BACK PAIN COMPAR KAREEM: None availa ble TECHNI QUE: Three views of the thorac ic and lumbar spine were perfor med. AP view of the pelvis was perfor med. FINDIN GS: No fractu re, listhe sis, or scolio sis are identi fied about the thorac olumba r spine. No signif icant degene rative change s. The pelvis is intact . There are 2 calcul i within the right proxim al ureter adjace nt to the right L3 transv erse proces s. The larges t measur es 5 mm. Page 1 of 2 [facility] Pati t Name: CYNDI HESTER Access ion #: [id number] Sex: F : 1970 9 Exam Date: 08/16/19 10:03 AM Exam Name: XR PELVIS 1V Admitt ing Diagno sis(es ): IMPRES ASHKAN: Unrema rkable radiog raphs of the thorac ic and lumbar spine as well as the pelvis . Right ureter al calcul i. Create d and electr onical ly signed by: Jacinto Gonzalez ch, DO Signed Date: 08/16/19 10:30 AM (CT) Dictat ed by: Jacinto Gonzalez ch, DO (CT) (CT) Page 2 of 2 [id number] [facility] (Imaging) [address] [place], [address], 04/09/2022 06:18:35 08/16/19 21 08/15/2020 XR, th[facility]ic [facility] [address] [place], [place] [address] [facility] Access ion #: [id number] Sex: F : 1970 9 Locati on: [facility] Attend ing Physic amber: GE CHAPIN Physic amber: GE CHAPIN Exam Date: 08/16/19 10:03 AM Exam Name: XR T SPINE 3V Admitt ing Diagno sis(es ): RADIOL OGY REPORT - FINAL EXAM: XR T SPINE 3V; XR L SPINE 4V+; XR PELVIS 1V HISTOR Y: PAIN IN THORAC IC SPINE; LOW BACK PAIN COMPAR KAREEM: None availa ble TECHNI QUE: Three views of the thorac ic and lumbar spine were perfor med. AP view of the pelvis was perfor med. FINDIN GS: No fractu re, listhe sis, or scolio sis are identi fied about the thorac olumba r spine. No signif icant degene rative change s. The pelvis is intact . There are 2 calcul i within the right proxim al ureter adjace nt to the right L3 transv erse proces s. The larges t measur es 5 mm. Page 1 of 2 [facility] Patidiogenes t Name: CYNDI HESTER Access ion #: [id number] Sex: F : 1970 9 Exam Date: 08/16/19 10:03 AM Exam Name: XR T SPINE 3V Admitt ing Diagno sis(es ): IMPRES ASHKAN: Unrema rkable radiog raphs of the thorac ic and lumbar spine as well as the pelvis . Right ureter al calcul i. Create d and electr onical ly signed by: Jacinto Gonzalez ch, DO Signed Date: 08/16/19 10:30 AM (CT) Dictat ed by: Jacinto Gonzalez ch, DO (CT) (CT) Page 2 of 2 [facility].[id number] [facility] (Imaging) [address] [place], [address], 04/09/2022 06:18:35 08/16/19 21 08/15/2020 XR, lumba r spine [facility] [address] [address] [phone] Hayder lopez Name: CYNDI HESTER Access ion #: [id number] Sex: F : 1970 9 Locati on: [facility] Attend ing Physic amber: GE CHAPIN Orderi ng Physic amber: GE CHAPIN Exam Date: 08/16/19 10:03 AM Exam Name: XR L SPINE 4V+ Admitt ing Diagno sis(es ): RADIOL OGY REPORT - FINAL EXAM: XR T SPINE 3V; XR L SPINE 4V+; XR PELVIS 1V HISTOR Y: PAIN IN THORAC IC SPINE; LOW BACK PAIN COMPAR KAREEM: None availa ble TECHNI QUE: Three views of the thorac ic and lumbar spine were perfor med. AP view of the pelvis was perfor med. FINDIN GS: No fractu re, listhe sis, or scolio sis are identi fied about the thorac olumba r spine. No signif icant degene rative change s. The pelvis is intact . There are 2 calcul i within the right proxim al ureter adjace nt to the right L3 transv erse proces s. The larges t measur es 5 mm. Page 1 of 2 [facility] Hayder lopez Name: CYNDI HESTER Access ion #: [id number] Sex: F : 1970 9 Exam Date: 08/16/19 10:03 AM Exam Name: XR L SPINE 4V+ Admitt ing Diagno sis(es ): IMPRES ASHKAN: Unrema rkable radiog raphs of the thorac ic and lumbar spine as well as the pelvis . Right ureter al calcul i. Create d and electr onical ly signed by: Jacinto Gonzalez ch, DO Signed Date: 08/16/19 10:30 AM (CT) Dictat ed by: Jacinto Gonzalez ch, DO (CT) (CT) Page 2 of 2 [id number] [facility] (Imaging) [address] [place] [address], [address], 04/09/2022 06:18:35 Result Notes None recorded. Problems Name Problem SNOMED Code Status Onset Date Resolution Date Notes Provider Name and Address Organization Details Recorded Time Gastroesophag eal reflux disease 022619950 Active Not Available [facility] 3 12:06:48 Pure hypercholeste rolemia 291991360 Active Not Available [facility] 3 12:06:48 Lymphadenopat hy 66228676 Active Not Available [facility] 3 12:06:48 Pharyngitis 261499315 Active Not Available [facility] 3 12:06:48 Hypothyroidis m 71317414 Active Not Available [facility] 3 12:06:48 Problem Notes None recorded. Procedures Surgical History Date Name Laterality Status Provider Name and Address Organization Details Recorded Time Colonoscopy completed Not Available [facility] 04/10/19 05:57:46 ENT Surgery completed Not Available [facility] 04/09/2022 05:57:46 Imaging Results Imaging Date Name Status LastModified by Organiz ation Details LastModified Time 08/15/2020 XR, pelvis completed [id number] [facility] (Im[facility]) [address] [place], [address], 04/09/2022 06:18:35 08/15/2020 XR, thoracic spine completed [id number] [facility] (Im[facility]) [address] [place], [address], 04/09/2022 06:18:35 08/15/2020 XR, lumbar spine completed [id number] [facility] (Im[facility]) [address] [place], [address], 04/09/2022 06:18:35 Procedure Notes None recorded. Medical Equipment None Reported. Allergies Allergen ID Allergen Name Allergen Category Reaction Reaction Severity Criticality Documentation Date Start Date Code Code System Note Provider Name and Address Organization Details Recorded Time 97725 Substance with sulfonami de structure and antibacte rial mechanism of action (substanc e) medicatio n rash Not available Not available 04/09/2022 71237 8003 SNOMED Not Available [facility] 06:18:04 Medications Name Sig Start Date Stop Date Status Note LastModified by Organization Details LastModified Time amoxicillin 500 mg capsule TAKE 2 CAPSULES BY MOUTH ONCE DAILY X10 DAYS 08/13 completed Not Available Not Available Not Available prednisone 10 mg tablet Take 30mg X 3 days, 20mg X 3 days, 10mg X 3 days active Not Available Not Available No t Available atorvastati n 10 mg tablet TAKE 1 TABLET DAILY active Not Available Not Available No t Available azithromyci n 250 mg tablet use as directed 07/24 completed Not Available Not Available Not Available Lidocaine Viscous 2 % mucosal solution TAKE 1.3 ML BY MOUTH EVERY 4 (FOUR) HOURS FOR 10 DAYS. SWISH AND SPIT. 08/13 completed Not Available Not Available Not Available ofloxacin 0.3 % eye drops 08/05 completed Not Available Not Available Not Available fluconazole 150 mg tablet 07/23 completed Not Available Not Available Not Available valacyclovi r 1 gram tablet prn active Not Available Not Available Not Available hydrocodone 5 mg-acetamin ophen 325 mg tablet 08/05 completed Not Available Not Available Not Available meloxicam 15 mg tablet TAKE 1 TABLET BY MOUTH EVERY DAY 08/14 completed Not Available Not Available Not Available spironolact one 100 mg tablet t 1 qd active Not Available Not Available Not Available doxycycline hyclate 50 mg capsule 07/23 completed Not Available Not Available Not Available Anucort-HC 25 mg suppository 07/24 completed Not Available Not Available Not Available metronidazo le 500 mg tablet 07/23 completed Not Available Not Available Not Available levothyroxi ne 100 mcg tablet TAKE ONE TABLET DAILY IN THE MORNING ON AN EMPTY STOMACH 09/26 completed Not Available Not Available Not Available Proctozone- HC 2.5 % topical cream perineal applicator 07/23 completed Not Available Not Available Not Available levothyroxi ne 125 mcg tablet TAKE 1 TABLET DAILY 2022 active Not Available Not Available Not Avai lable metronidazo le 0.75 % topical cream 07/24 completed Not Available Not Available Not Available hydrocortis one 2.5 % topical cream 08/16 completed Not Available Not Available Not Available amoxicillin 875 mg-potassiu m clavulanate 125 mg tablet TAKE 1 TABLET BY MOUTH EVERY DAY IN THE MORNING AND AT BEDTIME FOR 7 DAYS 08/13 completed Not Available Not Available Not Available niacin 08/16 completed Not Available Not Available Not Available Vitamin D3 08/15 completed Not Available Not Available Not Available CoQ-10 08/16 completed Not Available Not Available Not Available GaviLyte-N 420 gram oral solution 08/11 completed Not Available Not Available Not Available estradiol 10 mcg vaginal tablet prn active Not Available Not Available Not Available krill oil 08/24 completed Not Available Not Available Not Available Kaylin (28) 90 mcg-20 mcg tablet active Not Available Not Available Not Available Gynazole-1 2 % vaginal cream 07/23 completed Not Available Not Available Not Available Osphena 60 mg tablet TAKE 1 TABLET BY MOUTH DAILY -TAKE WITH FOOD, PREFERABL Y A HIGH-FAT MEAL 08/14 completed Not Available Not Available Not Available Fluvirin 9511-1140 45 mcg (15 mcg x 3)/0.5 mL intramuscul ar suspension ADM 0.5ML UTD active Not Available Not Available No t Available Fluvirin 4561-2126 45 mcg (15 mcg x 3)/0.5 mL intramuscul ar suspension ADM 0.5ML IM UTD 07/23 completed Not Available Not Available Not Available Xiidra 5 % eye drops in a dropperette INSTILL 1 DROP INTO BOTH EYES TWICE DAILY active Not Available Not Available No t Available Otovel 0.3 %-0.025 % (0.25 mL) ear solution 08/05 completed Not Available Not Available Not Available Flucelvax Quad 4499-7891 (PF) 60 mcg (15 mcg x 4)/0.5 mL IM syringe TO BE ADMINISTE RED BY PHARMACIS T FOR IMMUNIZAT ION 08/11 completed Not Available Not Available Not Available Imvexxy Maintenance Pack 4 mcg vaginal insert INSERT 1 INSERT IN THE VAGINA TWICE A WEEK 08/15 completed Not Available Not Available Not Available Afluria Qd 2018- (36 mos up)(PF)60 mcg (15 mcg x4)/0.5 mL IM syringe ADM 0.5ML IM UTD 08/16 completed Not Available Not Available Not Available Slynd 4 mg (28) tablet active Not Available Not Available Not Available Fluzone Quad (PF) 60 mcg (15 mcg x 4)/0.5 mL IM syringe PHARMACY ADMINISTE RED 08/15 completed Not Available Not Available Not Available Flowflex COVID-19 Antigen Home Test kit 08/13 completed Not Available Not Available Not Available Vitals Date Recorded Body mass index (BMI) Body mass index (BMI) Body height Body height Heart rate Heart rate Body temperature Body temperature Body weight Body weight Systolic blood pressure Diastolic blood pressure Systolic blood pressure Diastolic blood pressure Provider Name and Address Organization Details Last Updated DateTime 3 18.4 kg/m2 18.9 kg/m2 167.64 cm 167.64 cm 78 /min 76 /min 97.4 [degF] 97.6 [degF] 24224.5 3 g 36039.3 1 g 100 mm[Hg] 60 mm[Hg] 110 mm[Hg] 60 mm[Hg] Not Available [facility] 3 06:00:23 Date Recorded Body height Body mass index (BMI) Body weight Body temperature Heart rate Oxygen saturation Oxygen saturation in Arterial blood by Pulse oximetry Systolic blood pressure Diastolic blood pressure Provider Name and Address Organization Details Last Updated DateTime 3 167.64 cm 18.7 kg/m2 88235.7 1 g 96.8 [degF] 52 /min 98 % 98 % 110 mm[Hg] 68 mm[Hg] Lisa Mann RN [place] [facility] [place] [employer] [facility] 3 09:59:50 Social History Question Answer Notes LastModified by Organizat ion Details LastModified Time Tobacco Smoking Status Never Smoker Not Available [facility] 04/09/2022 05:56:05 Do You Have An Advance Directive? No [id number] Information not available 04/09/2022 What Is Your Level Of Alcohol Consumption? Occasional [id number] Information not available 04/09/2022 What Is Your Level Of Caffeine Consumption? Moderate [id number] Information not available 04/09/2022 How Much Tobacco Do You Chew? None [id number] Information not available 04/09/2022 In The 14 Days Before Symptom Onset, Have You Had Close Contact With A Laboratory-confir med COVID-19 While That Case Was Ill? No [id number] Information not available 04/09/2022 In The 14 Days Before Symptom Onset, Have You Had Close Contact With A Person Who Is Under Investigation For COVID-19 While That Person Was Ill? No [id number] Information not available 04/09/2022 What Type Of Diet Are You Following? REGULAR [id number] Information not available 04/09/2022 Which Illicit Or Recreational Drugs Have You Used? None [id number] Information not available 04/09/2022 Do You Or Have You Ever Used E-cigarettes Or Vape? Never Used Electronic Cigarettes [id number] Information not available 04/09/2022 What Is Your Occupation? [employer] [id number].[id number] Information not available 04/09/2022 Are There Any Guns Present In Your Home? No [id number] Information not available 04/09/2022 What Was The Date Of Your Most Recent Tobacco Screening? 08/13/2022 [email or web address] Information not available 08/13/2022 Do You Or Have You Ever Used Smokeless Tobacco? Never Used Smokeless Tobacco MIGRATION.[id number] Information not available 04/09/2022 How Much Tobacco Do You Smoke? No MIGRATION.[id number] Information not available 04/09/2022 Do You Use Sunscreen Routinely? Yes MIGRATION.[id number] Information not available 04/09/2022 How Many Years Have You Smoked Tobacco? 0 [id number].[id number] Information not available 04/09/2022 Sex: Unknown Functional Status Question Answer Note LastModified by Organizat ion Details LastModified Time What is your exercise level? Heavy [id number] Information not available 04/09/2022 Mental Status None recorded. Family History Relationship Description Onset Age of this Age Resolved Age Notes LastModified by Organization Details LastModified Time Mother Diabetes mellitus [id number] Not available 04/09/2022 05:57:50 Medical History Condition Response NERVE DISEASE N BLINDNESS N RHEUMATIC FEVER N KIDNEY STONES N BLADDER PROBLEMS N MRSA N OTHER # 1 Y POLIO N LUNG DISEASE/DISORDER N RADIATION / CHEMOTHERAPY N COPD N Other # 2 N BLOOD DISEASES N EAR OR HEARING PROBLEMS N MUMPS N DEPRESSION (INCLUDING POST ) N BOWEL PROBLEMS N STROKE/TIA N ULCERS N BENIGN PROSTATIC HYPERPLASIA N MEASLES N MYOCARDIAL INFARCTION N OBESITY N GERD/NAUSEA Y ANEURYSM N URINARY/BLADDER/KIDNEY PROBLEMS N CORONARY ARTERY DISEASE (CAD) N ADDICTION CONCERNS N Impotence N ENDOMETRIOSIS N USE OF BLOOD THINNERS N SKIN PROBLEMS N GASTROINTESTINAL DISORDER N PERIPHERAL VASCULAR DISEASE N MUSCLE,JOINT OR BONE PROBLEMS N GASTROINTESTINAL BLEEDING N BLOOD CLOTS N ASTHMA N CATARACTS N ERECTILE DYSFUNCTION N VARICOSITIES N GI PROBLEMS N Low Testosterone N INFERTILITY N AIDS/HIV N CHEMOTHERAPY / RADIATION N LIVER DISEASE N MALE HYPOGONADISM N HYPERTENSION N Deficiency N TOURETTE'S N ANXIETY DISORDER N BLOOD TRANSFUSION N ANEMIA/BLOOD DISORDER N CHRONIC EAR INFECTIONS N BRONCHITIS N TUBERCULOSIS N GLAUCOMA N FOOT PROBLEM N DIVERTICULITIS N SLEEP APNEA N CHICKENPOX N INFECTIOUS DISEASE N PROSTATE N HEART ARRHYTHMIA N INSOMNIA N HIGH CHOLESTEROL / HYPERLIPIDEMIA Y EYE PROBLEMS N HYPERTHYROIDISM N EDEMA N CHRONIC PAIN SYNDROME N HYPOTHYROIDISM Y CAROTID BLOCKAGE N CONSTIPATION N BACK / NECK PROBLEMS N HAVE YOU BEEN HOSPITALIZED OR SEEN IN [facility] IN THE PAST YEAR ? N ATHEROSCLEROSIS N BREAST PROBLEMS N DIALYSIS N ECZEMA N OSTEOPOROSIS N ARTHRITIS N APPENDICITIS N DIABETES, TYPE N BAD TEETH N ENT N HEARTBURN / REFLUX N AUTISM SPECTRUM DISORDER (ASD) N HEPATITIS / LIVER DISEASE N GOUT N SLEEP DISORDER N ALZHEIMER'S DISEASE N Brain Problems N DEMENTIA N HERPES N SEIZURES/EPILEPSY N HEADACHES/MIGRAINES N VASCULAR DISEASE N PACEMAKER N Blood Disorder N DIZZINESS N HEART DISEASE/HEART PROBLEMS N KIDNEY DISEASE N MULTIPLE SCLEROSIS N CANCER: SPECIFY N CARDIAC ARRHYTHMIA N ATRIAL FIBRILLATION N Gall Stones N PULMONARY EMBOLISM N AUTOIMMUNE DISEASE N Gynecological HistoryNo gynecological history recorded. Obstetrics History GPAL:G 0 P 0 0 0 0 Immunizations Vaccine Type Date Status Note Provider Nam e and Address Organization Details Recorded Time COVID-19, mRNA, LNP-S, PF, 100 mcg/0.5mL dose or 50 mcg/0.25mL dose 1 completed Not Available [facility] 08/14/2022 12:06:48 COVID-19, mRNA, LNP-S, PF, 100 mcg/0.5mL dose or 50 mcg/0.25mL dose 1 completed Not Available [facility] 08/14/2022 12:06:48 Influenza, split virus, quadrivalent, preservative 9 completed Not Available [facility] 08/14/2022 12:06:48 Influenza, split virus, quadrivalent, preservative 8 completed Not Available [facility] 08/14/2022 12:06:48 Influenza, split virus, quadrivalent, preservative 6 completed Not Available [facility] 08/14/2022 12:06:48 COVID-19, mRNA, LNP-S, PF, 30 mcg/0.3 mL dose 2 completed Not Available [facility] 08/14/2022 12:06:48 influenza, unspecified formulation 4 completed Not Available [facility] 08/14/2022 12:06:48 Past Encounters Encounter ID Performer Location Encounter Start Date Encounter Closed Date Diagnosis/Indication Diagnosis SNOMED-CT Code Diagnosis ICD10 Code Diagnosis Note [id number] [facility] Internal Med [facility] [address] [place] [address] 1 08/15/2020 00:00:00 08/19/2020 16:38:13 [id number] [facility] Internal Med [place] [address] 1 08/14/2021 00:00:00 08/14/2021 10:35:11 [id number] Dante Chapin MD [facility] Internal Med [place] [id number] 1 08/13/2022 09:50:41 08/13/2022 10:28:19 Adult health examination 067487025 Z00.00 Hypothyroidism 34550899 E03.9 Gastroesop hageal reflux disease 862997493 K21.9 Pure hypercholesterolemia [id number] E78.00 Health Concerns Section Related Observation LastModified by Organization Detai ls LastModified Time None Recorded Concern Status LastModified by Organization Details LastModified Time None Recorded Advance Directives Directive N: Payers Encounter Date Sequence Insurance Name Policy Number Policy Toribio Covered Member ID Toribio Member ID Guarantor Name 08/13/2022 1 [facility] CHOICE PLUS (POS) [id number] Cyndi Franks [id number] Cyndi Franks Notes Date Note Type Note Provider Name and Address Organization Details Recorded Time 08/13/2022 text/html Yearly visit doi ng ember acute heartburn off and on 10-20 years has really tried anything for hypothyroid feels fine colon polyps poly needs re colonoscopy Dante Chapin MD [address] [facility], [facility] [address], [place], [address], [place] [facility] 08/13/2022 10:31:46 OBGyn Episode No OBEpisode recorded.
== END 2024-03-23 12:27 | disposition home or self-care (01) ==
LOC: ANHIMG 12:31
PROVIDERS: PCP Physician Assistant; Visit Provider Nurse Practitioner Obstetrics & Gynecology
DX: R92.8 Other abnormal and inconclusive findings on diagnostic imaging of breast (principal)
CPT/HCPCS: 76641; 77061; 77065; G0279